=== PATIENT | male | born 1970 | race Caucasian/White ===

== ENCOUNTER 2020-03-29 20:27 | Emergency (ER) | payer MEDICAID ==
[~2020-03-29] VITALS: Ht 175.3 cm; Wt 102.1 kg
[2020-03-29 20:40] VITALS: BP 141/83
--- NOTE | 2020-03-29 20:45 | NUR ---
PT TAKEN TO BED 6
--- NOTE | 2020-03-29 21:06 | NUR ---
Dr. Hernández examining patient.
--- NOTE | 2020-03-29 21:06 | NUR ---
50 y/o male presented to ED C/O LOWER BACK PAIN X 1 YEAR BUT PAIN HAS GOTTEN WORSE 5 DAYS AGO. RATES PAIN 10/10 AND DESCRIBES IT SHARP/SHOOTING. WENT TO URGENT CARE EARLIER TODAY. TOOK PAIN MEDS A WEEK AGO, RAN OUT OF [facility]. PT DENIES ANY TRAUMA. PT BREATHING EVEN AND UNLABORED. A/O X4. PT SITTING IN CHAIR AT BEDSIDE. NAD NOTED AT THIS TIME. NKDA. PMH: LOWER BACK PAIN
[2020-03-29] MEDS ORDERED: HYDROcodone/APAP 10/325 MG 1 TAB TAB PO ONE (21:10)
[2020-03-29 21:31] VITALS: BP 141/83
--- NOTE | 2020-03-29 21:31 | NUR ---
PT LEFT PRIOR TO D/C. DISCHARGE INSTRUCTIONS NOT GIVEN TO PATIENT. DR. ABBOTT NOTIFIED.
== END 2020-03-29 21:31 | disposition home or self-care (01) ==
LOC: MED 20:27
DX: M54.30 Sciatica, unspecified side (principal); M48.54XA Collapsed vertebra, not elsewhere classified, thoracic region, initial encounter for fracture
CPT/HCPCS: 99283

== ENCOUNTER 2021-02-21 03:22 | Emergency (ER) | payer MEDICAID ==
--- NOTE | 2021-02-21 03:25 | NUR ---
PATIENT LEFT WITHOUT BEING SEEN BY DR. BRAVO. NO FURTHER CARE PROVIDED FOR PATIENT.
== END 2021-02-21 03:25 | disposition left against medical advice (07) ==
LOC: MED 03:22
DX: Z53.21 Procedure and treatment not carried out due to patient leaving prior to being seen by health care provider (principal)